=== PATIENT | male | born 2000 ===

== ENCOUNTER 2023-10-25 10:31 | Emergency (ER) | payer BC, SELFPAY ==
[2023-10-25 10:40] VITALS: BP 153/100
--- NOTE | 2023-10-25 10:50 | ED.GENMED ---
History of Present Illness
General
Chief Complaint: Chest Pain
Source: patient
Exam Limitations: none
Time Seen by Provider: 10/25/23 10:49
Nursing documentation reviewed up to this point in time: agreed with
History of Present Illness
History of Present Illness:
23 yo male with no PMHX presents stating he woke up at 7:30 this a.m. with pain in right upper chest. No recollection of overuse or injury. No FH early cardiac problems. States pain is constant, no aggravating or relieving factors. Denies SOB,
lightheadedness, n/v/d/c.
Past History
Past History
ED Past Medical History: None
ED Past Surgical History: Other (gastric sleeve 2020 )
Social History
Tobacco: Vaping (occasional)
Alcohol: Occasional
Drug: None
Personal: Single
Living: with family
Employment: Employed (rental sales associate)
Family History
Family History: Negative Early CAD, CAD or Sudden
Review of Systems
Review of Systems
Allergies reviewed?: Yes
All Other Systems: ROS reviewed and negative except as documented in HPI and ROS
Constitutional: Denies fever
Respiratory: Denies trouble breathing
Cardiac: Reports chest pain; Denies diaphoresis or palpitations
ABD/GI: Denies nausea
Musculoskeletal: Reports no symptoms
Skin: Reports no symptoms
Neurological: Reports no symptoms
Phy Exam
Physical Exam
Physical Exam:
GENERAL: No acute distress. A&Ox3.
CONSTITUTIONAL: Afebrile.
EYES: clear, conjunctivae normal
ENMT: moist mucus membranes, Pharynx nl
RESPIRATORY: Regular respirations, nonlabored, lungs clear.
CARDIOVASCULAR: Regular rate and rhythm, no murmurs, no rubs.
GI: Soft, nontender, normal BS
MUSCULOSKELETAL: Moves with ease. Well perfused. Denies change in pain with palpation of chest wall.
SKIN: Warm, dry, pink
PSYCH: Normal mood and affect. Well kept, interactive and appropriate
NEUROLOGIC: Awake, alert and oriented. No focal neurological deficits
Scores
Heart Score for Chest Pain Patients
STEMI patient?: Not applicable
Course
Orders/Labs/Results
Orders:
Orders
10/25/23 10:32
Electrocardiogram (*1) Urgent
Reason for Study: Chest Pain
EKG- Treatment ONCE
10/25/23 10:49
CR Chest - 2 Views Urgent
Comment:
Reason For Exam: Right pectoral area pain
10/25/23 10:51
Ibuprofen [Motrin] 600 mg PO NOW STA
10/25/23 12:01
Ibuprofen [Motrin] 600 mg PO NOW STA
Vital Signs
Initial and Last Documented VS:
Initial Vital Signs
Temp Pulse Resp BP Pulse Ox
98.0 F 69 16 153/100 98
10/25/23 10:40 10/25/23 10:40 10/25/23 10:40 10/25/23 10:40 10/25/23 10:40
Last Documented Vital Signs
Temp Pulse Resp BP Pulse Ox
98.0 F 71 17 135/95 97
10/25/23 10:40 10/25/23 12:15 10/25/23 11:30 10/25/23 12:00 10/25/23 12:15
MDM/Problems Addressed
Differential Diagnosis Includes:
Pectoral muscle spasm, muscle strain, costochondritis, pneumothorax
MDM/Problems Addressed:
23 yo male with no PMHX presents stating he woke up at 7:30 this a.m. with pain in right upper chest. No recollection of overuse or injury. No FH early cardiac problems. States pain is constant, no aggravating or relieving factors. Denies SOB,
lightheadedness, n/v/d/c.
EKG NSR
CXR unremarkable.
After Ibuprofen pt states pain is gone.
Pt is young, healthy male, no need for further cardiac workup
Case discussed with Dr. Giraldo who agrees.
Pt reassured.
Was going to refer to PCP hotline. Pt does not live in this area. He will find a PCP near him.
*Critical Care Note
Total Time (30-74mins, 75-104mins- exclusive of procedures): Not Applicable
ED Attending Note
-
Portions of this chart may have been created with voice recognition software.� Occasional wrong word or��sound alike� substitutions may have occurred due to the inherent limitations of voice recognition software.
Discharge Plan
Departure
Patient Disposition: Home (Routine Discharge)
Date of Disposition: 10/25/23
Time of Disposition: 12:17
Patient with high blood pressure during this ER visit?: No
Condition: Good
Discharge Problem:
Atypical chest pain
Instructions: Chest Pain That Is Not Caused by the Heart (DC), Musculoskeletal Pain
Referrals:
NONE,* [Family Provider] -
Stand Alone Forms: Return to Work
Activity Restrictions/Additional Instructions:
As we discussed, there is nothing worrisome in your workup here today.
Specifically no sign of a heart attack.
Since the Ibuprofen worked, continue Ibuprofen 600 mg (with food) every 6 hours as needed for pain.
Call the number on the back of your insurance card to get a primary doctor.
Interventions
Interventions:
*Risk Screen - Suicide Last Done: 10/25/23 10:32
*General Assessment Last Done: 10/25/23 10:56
*Neglect/Abuse Screening Last Done: 10/25/23 10:56
ED- Fall Risk Assessment Last Done: 10/25/23 10:59
*ED COVID-19 Vaccine History Last Done: 10/25/23 10:56
*Nursing Disposition Last Done: 10/25/23 12:27
ED- Cardiac Assessment Last Done: 10/25/23 10:59
Discharge Date and Time
Discharge Date/Time: 10/25/23 12:28
Print Language: CHINESE
[2023-10-25 10:53] VITALS: BP 144/100
[2023-10-25 10:55] VITALS: BMI 27.0
[2023-10-25] MEDS: MOTRIN 600 MG PO (10:57)
[2023-10-25 11:00] VITALS: BP 132/91
[2023-10-25 12:00] VITALS: BP 135/95
== END 2023-10-25 12:28 | disposition home or self-care (01) ==
LOC: EMR 10:31
PROVIDERS: EMERGENCY PHYSICIAN Emergency Medicine
DX: R07.89 Other chest pain (principal); F17.290 Nicotine dependence, other tobacco product, uncomplicated
CPT/HCPCS: 99284; 71046; 93005